=== PATIENT | female | born 1965 | race Caucasian/White ===

== ENCOUNTER → 2017-01-01 | Outpatient (CLI) | payer MEDICARE, MEDICAID, OTHER ==
[~2017-01-01] MED LIST: ALDACTONE 25MG25 M1 PO; ASPIRIN 32325 MG/TAB PO; ATORVASTATIN CA40 MG PO; CEPHALEXIN500 M2 PO; CORDARONE200 MG/TAB PO; COREG 3.123.125 MG/T PO; COREG3.125 MG PO; DEXAMETHASONE4 MG PO; DIGITEK0.125 MG PO; FLEXERIL10 MG PO; KLONOPIN 1MG1 M1 PO; LANOXIN0.125 MG PO; LASIX40 MG PO; LASIX80 M1 PO; LIPITOR 40MG TA40 MG PO; LISINOPRIL2.5 MG PO; LISINOPRIL5 MG PO; LOPRESSOR 225 MG/TAB PO; MAG-OX 400400 MG/TAB PO; METOLAZONE2.5 MG PO; NITROGLYCERIN0.4 MG SL; NORCO 10-325 T1 EACH PO; NORCO 325 MG-101 TAB PO; OXYCODONE PO; POTASSIUM CH2 MEQ/ML PO; POTASSIUM CHLO20 ME3 PO; POTASSIUM CHLO20 MEQ PO; SIMVASTATIN40 M1 PO; SPIRONOLACTONE; TOPROL XL 25MG25 MG PO; TORSEMIDE100 MG PO; TYLENOL 500MG500 MG PO; VIBRAMYCIN100 MG PO; ZANTAC 15OMG150 MG PO; ZAROXOLYN2.5 MG PO
== END ==
LOC: RAD 16:04
DX: R05 Cough (principal)

== ENCOUNTER → 2017-01-11 | Outpatient (CLI) | payer MEDICARE, MEDICAID ==
[2016-01-06 21:03] VITALS: BP 124/73
== END ==
LOC: LAB 14:11 → RAD 14:11
DX: I42.0 Dilated cardiomyopathy (principal); I49.01 Ventricular fibrillation; I05.9 Rheumatic mitral valve disease, unspecified

== ENCOUNTER → 2017-01-21 | Outpatient (CLI) | payer MEDICARE, MEDICAID ==
[2016-01-06 21:03] VITALS: BP 124/73
== END ==
LOC: LAB 11:15
DX: I42.0 Dilated cardiomyopathy (principal); I49.01 Ventricular fibrillation; I05.9 Rheumatic mitral valve disease, unspecified; R73.02 Impaired glucose tolerance (oral)

== ENCOUNTER 2017-12-28 19:40 | Emergency (ER) | payer MEDICARE, MEDICAID ==
[~2017-12-28 19:40] MED LIST changes: -KLONOPIN 1MG1 M1 PO; +KLONOPIN 1MG1 MG PO
[2017-12-28 20:26] LABS: ALBUMIN 4.1 g/dL (3.5-5.0); BUN/CREATININE RATIO 13.9 (6.0-26.0); CALCIUM 9.1 mg/dL (8.4-10.2); TOTAL BILIRUBIN 0.4 mg/dL (0.2-1.3); TOTAL PROTEIN 7.8 g/dL (6.3-8.2)
[2017-12-28 20:29] LABS: PROTHROMBIN TIME 9.1 SECONDS (9.0-12.0)
[2017-12-28 20:31] LABS: HEMATOCRIT 40.6 % (37.0-47.0); HEMOGLOBIN 13.9 g/dL (12.5-16.0); MEAN CELL VOLUME 85 fl (78-100); MEAN CORPUSCULAR HEMOGLOBIN 29 pg (27-31); MEAN CORPUSCULAR HGB CONC 34 g/dL (33-37); MEAN PLATELET VOLUME 9.5 fl (7.4-10.4); PLATELET COUNT 388 K/mm3 (130-400); RED BLOOD COUNT 4.77 M/mm3 (4.10-5.30); WHITE BLOOD COUNT 18.4 K/mm3 (4.8-10.8)
[2017-12-28 20:33] LABS: POTASSIUM 2.3 mmol/L (3.6-5.0)
[2017-12-28 20:34] LABS: TROPONIN-I < 0.03 ng/mL (0.00-0.06)
[2017-12-28 20:37] LABS: CKMB ISOENZYME 1.6 ng/mL (0.6-3.5)
[2017-12-28 20:45] LABS: LYMPHOCYTE 34 % (20-51); MONOCYTE 10 % (3-10); NEUTROPHILS 52 % (42-75)
[2017-12-28] MEDS ORDERED: ZOFRAN4 M2 PO (23:11)
[2017-12-28] MEDS ORDERED: NORCO 325 MG-7.1 TA1 PO (23:11)
[2017-12-28] MEDS ORDERED: KLONOPIN 1MG1 MG PO (23:13)
[2017-12-28] MEDS ORDERED: TAPAZOLE5 MG PO (23:15)
[2017-12-28] MEDS ORDERED: TOPROL XL 25MG25 MG PO (23:16)
[2017-12-28] MEDS ORDERED: POTASSIUM CHLO10 ME7 PO (23:18)
[2017-12-29 01:07] VITALS: BP 96/67
== END 2017-12-28 21:04 | disposition short-term general hospital (02) ==
LOC: ED 19:40
PROVIDERS: Nurse Practitioner Primary Care
DX: I47.2 Ventricular tachycardia (principal); I49.8 Other specified cardiac arrhythmias; T82.199A Other mechanical complication of unspecified cardiac device, initial encounter; Z45.02 Encounter for adjustment and management of automatic implantable cardiac defibrillator; E89.0 Postprocedural hypothyroidism; I11.0 Hypertensive heart disease with heart failure; I50.9 Heart failure, unspecified; I25.10 Atherosclerotic heart disease of native coronary artery without angina pectoris; Z95.1 Presence of aortocoronary bypass graft; E78.5 Hyperlipidemia, unspecified; Z79.82 Long term (current) use of aspirin; Z88.8 Allergy status to other drugs, medicaments and biological substances; F17.210 Nicotine dependence, cigarettes, uncomplicated; K72.90 Hepatic failure, unspecified without coma
CPT/HCPCS: J0282; J2270; J3010; J3475; J3480; J7030; J7060

== ENCOUNTER → 2019-03-09 | Outpatient (CLI) | payer MEDICARE ==
[2017-12-29 01:07] VITALS: BP 96/67
[~2019-03-09] MED LIST changes: +LEVOTHYROXINE0.05 MG PO; +METOPROLOL SUCC50 M1 PO; +NORCO 325 MG-7.1 TA1 PO; +POTASSIUM CHLO10 ME7 PO; +TAPAZOLE5 MG PO; +ZOFRAN4 M2 PO
[2019-03-09 15:31] LABS: BASO # 0.1 (0.02-0.10); EOS # 0.6 (0.04-0.40); EOS % 4.9 % (1.0-5.0); HEMATOCRIT 44.7 % (37.0-47.0); HEMOGLOBIN 14.1 g/dL (12.5-16.0); LYMPH# 2.9 (1.50-4.00); MEAN CELL VOLUME 99 fl (78-100); MEAN CORPUSCULAR HEMOGLOBIN 31 pg (27-31); MEAN CORPUSCULAR HGB CONC 32 g/dL (33-37); MEAN PLATELET VOLUME 9.7 fl (7.4-10.4); MONO # 0.8 (0.20-0.80); NEU # 7.8 (1.40-6.50); PLATELET COUNT 264 K/mm3 (130-400); RED CELL DISTRIBUTION WIDTH 13.9 % (11.5-14.5); WHITE BLOOD COUNT 12.1 K/mm3 (4.8-10.8)
[2019-03-09 16:58] LABS: ERYTHROCYTE SEDIMENTATION RATE 7 mm/hr (0-30)
[2019-03-09 17:05] LABS: ALBUMIN 4.2 g/dL (3.5-5.0); CALCIUM 9.5 mg/dL (8.3-10.5); POTASSIUM 4.4 mmol/L (3.5-5.1); TOTAL BILIRUBIN 0.7 mg/dL (0.2-1.2); TOTAL PROTEIN 7.2 g/dL (6.4-8.3)
[2019-03-09 17:19] LABS: URINE APPEARANCE HAZY; URINE BILIRUBIN NEGATIVE (NEGATIVE); URINE COLOR YELLOW; URINE GLUCOSE NEGATIVE (NEGATIVE); URINE KETONE NEGATIVE (NEGATIVE); URINE NITRATE POSITIVE (NEGATIVE); URINE PROTEIN(semi-quant) TRACE mg/dL (NEGATIVE); URINE UROBILINOGEN NORMAL (NORMAL)
[2019-03-09 17:20] LABS: URINE BLOOD NEGATIVE (NEGATIVE); URINE LEUKOCYTE ESTERASE TRACE (NEGATIVE)
== END ==
LOC: LAB 15:03
PROVIDERS: Internal Medicine
DX: Z00.00 Encounter for general adult medical examination without abnormal findings (principal); I42.9 Cardiomyopathy, unspecified; K90.9 Intestinal malabsorption, unspecified; R73.02 Impaired glucose tolerance (oral)

== ENCOUNTER → 2019-03-13 | Outpatient (CLI) | payer MEDICARE ==
[2017-12-29 01:07] VITALS: BP 96/67
== END ==
LOC: MAMMO 10:45
DX: Z12.31 Encounter for screening mammogram for malignant neoplasm of breast (principal)

== ENCOUNTER 2019-03-15 20:54 | Emergency (ER) | payer MEDICARE ==
[~2019-03-15 20:54] MED LIST changes: -LEVOTHYROXINE0.05 MG PO; -METOPROLOL SUCC50 M1 PO
[2019-03-15] MEDS ORDERED: METOPROLOL SUCC50 M1 PO (21:09)
[2019-03-15] MEDS ORDERED: LEVOTHYROXINE0.05 MG PO (21:12)
[2019-03-15 22:15] VITALS: BP 132/86
== END 2019-03-15 22:18 | disposition home or self-care (01) ==
LOC: ED 20:54
DX: S80.02XA Contusion of left knee, initial encounter (principal); S90.02XA Contusion of left ankle, initial encounter; M79.652 Pain in left thigh; I11.0 Hypertensive heart disease with heart failure; I50.9 Heart failure, unspecified; E78.00 Pure hypercholesterolemia, unspecified; I25.10 Atherosclerotic heart disease of native coronary artery without angina pectoris; F17.210 Nicotine dependence, cigarettes, uncomplicated; K72.90 Hepatic failure, unspecified without coma; Z88.8 Allergy status to other drugs, medicaments and biological substances; Z79.82 Long term (current) use of aspirin; W10.2XXA Fall (on)(from) incline, initial encounter; Y92.813 Airplane as the place of occurrence of the external cause

== ENCOUNTER → 2019-07-27 | Outpatient (CLI) | payer MEDICARE ==
[~2019-07-27] MED LIST changes: +LEVOTHYROXINE0.05 MG PO; +METOPROLOL SUCC50 M1 PO
== END ==
LOC: LAB 16:32
DX: I42.0 Dilated cardiomyopathy (principal); R73.02 Impaired glucose tolerance (oral); E05.90 Thyrotoxicosis, unspecified without thyrotoxic crisis or storm; I47.2 Ventricular tachycardia

== ENCOUNTER → 2019-09-27 | Outpatient (CLI) | payer MEDICARE | LOC: LAB 09:35 | DX: E03.2 Hypothyroidism due to medicaments and other exogenous substances (principal); I42.0 Dilated cardiomyopathy; R73.02 Impaired glucose tolerance (oral) ==

== ENCOUNTER → 2021-12-24 | Outpatient (CLI) | payer MEDICARE ==
[2021-12-24 15:08] LABS: EOS # 0.16 K/mm3 (0.04-0.40); EOS % 1.4 % (1.0-5.0); HEMATOCRIT 41.9 % (37.0-47.0); LYMPH# 2.53 K/mm3 (1.50-4.00); MEAN CELL VOLUME 94 fl (78-100); MEAN CORPUSCULAR HEMOGLOBIN 29 pg (27-31); MEAN CORPUSCULAR HGB CONC 31 g/dL (33-37); MEAN PLATELET VOLUME 9.4 fl (7.4-10.4); MONO # 0.88 K/mm3 (0.20-0.80); NEU # 8.06 K/mm3 (1.40-6.50); PLATELET COUNT 243 K/mm3 (130-400); RED BLOOD COUNT 4.46 M/mm3 (4.10-5.30); RED CELL DISTRIBUTION WIDTH 16.9 % (11.5-14.5); WHITE BLOOD COUNT 11.8 K/mm3 (4.8-10.8)
[2021-12-24 15:35] LABS: ALBUMIN 3.9 g/dL (3.5-5.0); POTASSIUM 3.2 mmol/L (3.5-5.1)
[2021-12-24 15:40] LABS: TOTAL BILIRUBIN 1.6 mg/dL (0.2-1.2)
[2021-12-24 15:44] LABS: MAGNESIUM 1.59 mg/dL (1.60-2.60)
[2021-12-24 15:59] LABS: PARTIAL THROMBOPLASTIN TIME 26.1 SECONDS (21.0-32.0); PROTHROMBIN TIME 11.4 SECONDS (9.0-12.0)
== END ==
LOC: LAB 14:51
PROVIDERS: Internal Medicine
DX: I42.0 Dilated cardiomyopathy (principal); F41.8 Other specified anxiety disorders; R23.3 Spontaneous ecchymoses

== ENCOUNTER → 2022-01-27 | Outpatient (CLI) | payer MEDICARE ==
[2022-01-27 12:45] LABS: BASO # 0.05 K/mm3 (0.02-0.10); EOS # 0.14 K/mm3 (0.04-0.40); EOS % 2.4 % (1.0-5.0); HEMATOCRIT 39.2 % (37.0-47.0); HEMOGLOBIN 11.8 g/dL (12.5-16.0); MEAN CELL VOLUME 90 fl (78-100); MEAN CORPUSCULAR HEMOGLOBIN 27 pg (27-31); MEAN CORPUSCULAR HGB CONC 30 g/dL (33-37); MEAN PLATELET VOLUME 9.4 fl (7.4-10.4); MONO # 0.66 K/mm3 (0.20-0.80); PLATELET COUNT 178 K/mm3 (130-400); RED BLOOD COUNT 4.35 M/mm3 (4.10-5.30); RED CELL DISTRIBUTION WIDTH 16.9 % (11.5-14.5); WHITE BLOOD COUNT 5.9 K/mm3 (4.8-10.8)
[2022-01-27 12:54] LABS: ALBUMIN 3.8 g/dL (3.5-5.0); POTASSIUM 3.4 mmol/L (3.5-5.1)
[2022-01-27 12:55] LABS: CALCIUM 9.5 mg/dL (8.3-10.5)
[2022-01-27 12:57] LABS: TOTAL PROTEIN 6.9 g/dL (6.4-8.3)
[2022-01-27 12:58] LABS: TOTAL BILIRUBIN 1.6 mg/dL (0.2-1.2)
[2022-01-27 13:00] LABS: PARTIAL THROMBOPLASTIN TIME 27.7 SECONDS (21.0-32.0); PROTHROMBIN TIME 12.1 SECONDS (9.0-12.0)
[2022-01-27 13:03] LABS: MAGNESIUM 1.96 mg/dL (1.60-2.60)
== END ==
LOC: LAB 12:27
PROVIDERS: Internal Medicine
DX: I42.0 Dilated cardiomyopathy (principal); F41.8 Other specified anxiety disorders; R23.3 Spontaneous ecchymoses

== ENCOUNTER 2023-10-28 21:59 | Emergency (ER) | payer MEDICARE ==
[~2023-10-28] VITALS: Ht 172.7 cm; Wt 84.5 kg
[2023-10-28 22:48] LABS: HEMATOCRIT 39.7 % (37.0-47.0); HEMOGLOBIN 13.2 g/dL (12.5-16.0); MEAN CELL VOLUME 103 fl (78-100); MEAN CORPUSCULAR HEMOGLOBIN 34 pg (27-31); MEAN CORPUSCULAR HGB CONC 33 g/dL (33-37); MEAN PLATELET VOLUME 10.1 fl (7.4-10.4); PLATELET COUNT 174 K/mm3 (130-400); RED BLOOD COUNT 3.85 M/mm3 (4.10-5.30); RED CELL DISTRIBUTION WIDTH 13.8 % (11.5-14.5)
[2023-10-28 22:53] LABS: CALCIUM 9.1 mg/dL (8.3-10.5)
[2023-10-28 23:17] LABS: BAND 2 % (0-10); LYMPHOCYTE 10 % (20-51); MONOCYTE 7 % (3-10); NEUTROPHILS 80 % (42-75)
[2023-10-29] MEDS ORDERED: MORGIDOX 1X100100 MG PO (00:11)
[2023-10-29] MEDS ORDERED: PREDNISONE20 M1 PO (00:11)
[2023-10-29 00:29] VITALS: BP 144/112
== END 2023-10-29 00:29 | disposition home or self-care (01) ==
LOC: ED 21:59
PROVIDERS: Family Medicine
DX: J44.1 Chronic obstructive pulmonary disease with (acute) exacerbation (principal); F17.210 Nicotine dependence, cigarettes, uncomplicated

== ENCOUNTER 2023-10-31 15:37 | Emergency (ER) | payer MEDICARE ==
[~2023-10-31] VITALS: Ht 172.7 cm; Wt 89.1 kg
[~2023-10-31 15:37] MED LIST changes: +MORGIDOX 1X100100 MG PO; +PREDNISONE20 M1 PO
[2023-10-31] MEDS ORDERED: SYNTHROID137 MCG PO (15:51)
[2023-10-31] MEDS ORDERED: ADULT LOW DOSE81 MG PO (15:51)
[2023-10-31 16:41] LABS: BASO # 0.03 K/mm3 (0.02-0.10); EOS # 0.01 K/mm3 (0.04-0.40); EOS % 0.1 % (1.0-5.0); HEMATOCRIT 45.8 % (37.0-47.0); HEMOGLOBIN 15.4 g/dL (12.5-16.0); LYMPH# 1.19 K/mm3 (1.50-4.00); MEAN CELL VOLUME 101 fl (78-100); MEAN CORPUSCULAR HEMOGLOBIN 34 pg (27-31); MEAN CORPUSCULAR HGB CONC 34 g/dL (33-37); MEAN PLATELET VOLUME 9.7 fl (7.4-10.4); MONO # 0.84 K/mm3 (0.20-0.80); NEU # 6.79 K/mm3 (1.40-6.50); PLATELET COUNT 194 K/mm3 (130-400); RED BLOOD COUNT 4.53 M/mm3 (4.10-5.30); RED CELL DISTRIBUTION WIDTH 14.2 % (11.5-14.5); WHITE BLOOD COUNT 8.9 K/mm3 (4.8-10.8)
[2023-10-31 16:49] LABS: ALBUMIN 4.3 g/dL (3.5-5.0)
[2023-10-31 16:51] LABS: CALCIUM 8.7 mg/dL (8.3-10.5)
[2023-10-31 16:52] LABS: TOTAL PROTEIN 7.9 g/dL (6.4-8.3)
[2023-10-31 16:54] LABS: TOTAL BILIRUBIN 1.52 mg/dL (0.2-1.2)
[2023-10-31 17:30] VITALS: BP 102/68
[2023-10-31] MEDS ORDERED: ROXICODONE 55 MG/TAB PO (17:54)
[2023-10-31] MEDS ORDERED: KLONOPIN 1MG1 MG PO ×2 (17:54→17:55)
[2023-10-31] MEDS ORDERED: METOPROLOL SUCC25 M1 PO (17:56)
== END 2023-10-31 18:20 | disposition other institution (70) ==
LOC: ED 15:37
PROVIDERS: Nurse Practitioner Family
DX: J44.1 Chronic obstructive pulmonary disease with (acute) exacerbation (principal); F17.200 Nicotine dependence, unspecified, uncomplicated
CPT/HCPCS: J7030; J7512

== ENCOUNTER 2023-10-31 17:45 | Observation (INO) | payer MEDICARE ==
[~2023-10-31] VITALS: Ht 172.7 cm; Wt 78.6 kg
[~2023-10-31 17:45] MED LIST changes: +ADULT LOW DOSE81 MG PO; +SYNTHROID137 MCG PO
[2023-10-31] MEDS ORDERED: KLONOPIN 1MG1 MG PO (17:54)
[2023-10-31] MEDS ORDERED: ROXICODONE 55 MG/TAB PO (17:54)
[2023-10-31] MEDS ORDERED: METOPROLOL SUCC25 M1 PO (17:56)
--- NOTE | 2023-10-31 18:24 | NUR ---
PATIENT WAS ADMITTED TO THE ER THIS DAY. 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 IT WAS REPORTED THAT SYMPTOMS BEGAN LAST WEEK. SHE DENIES SMOKING WITHIN THE PAST 5 DAYS. SHE HAS 2 DRINKS\DAY. SHE WAS GIVEN PREDNISONE AND DOXYCYCLINE IN THE ER.
[2023-10-31] MEDS ORDERED: Doxycycline Monohydrate 100 MG CAPSULE PO SCH (19:00)
[2023-10-31] MEDS ORDERED: Polyethylene Glycol 3350 Powder 17 GM PACKET PO PRN (19:00)
[2023-10-31] MEDS ORDERED: Albuterol/Ipratropium 3 MG-0.5 MG/3 ML Neb Soln IH PRN (19:00)
[2023-10-31] MEDS ORDERED: Acetaminophen 325 MG TAB PO PRN (19:00)
--- NOTE | 2023-10-31 20:00 | NUR ---
PT IS IN BED A&O X4. PT HAS A STEADY GAIT. TACHYPNIC AND WHEEZING. PT HAS A PRODUCTIVE COUGH. PT COMPLAINS OF RIGHT SIDED PLEURITIC PAIN. BED IN LOW POSITION CALL LIGHT IN REACH WATER REFILLED AND TISSUES PROVIDED
[2023-10-31 20:35] VITALS: BP 117/77
[2023-10-31 21:38] VITALS: BP 113/75
[2023-11-01 02:39] VITALS: BP 112/74
[2023-11-01 03:37] LABS: URINE APPEARANCE CLEAR (CLEAR); URINE COLOR YELLOW (YELLOW)
[2023-11-01 03:38] LABS: PH-URINE 5.5 (5.0 - 8.0); URINE BILIRUBIN NEGATIVE (NEGATIVE); URINE BLOOD 1+ (NEGATIVE); URINE GLUCOSE NEGATIVE (NEGATIVE); URINE KETONE NEGATIVE (NEGATIVE); URINE LEUKOCYTE ESTERASE NEGATIVE (NEGATIVE); URINE NITRATE NEGATIVE (NEGATIVE); URINE PROTEIN(semi-quant) NEGATIVE (NEGATIVE); URINE WBC 0-1 /hpf (0-3)
[2023-11-01 05:57] VITALS: BP 129/73
[2023-11-01 06:19] LABS: BASO # 0.01 K/mm3 (0.02-0.10); HEMATOCRIT 41.2 % (37.0-47.0); HEMOGLOBIN 13.6 g/dL (12.5-16.0); MEAN CELL VOLUME 104 fl (78-100); MEAN CORPUSCULAR HEMOGLOBIN 34 pg (27-31); MEAN CORPUSCULAR HGB CONC 33 g/dL (33-37); MEAN PLATELET VOLUME 9.7 fl (7.4-10.4); MONO # 0.33 K/mm3 (0.20-0.80); NEU # 4.14 K/mm3 (1.40-6.50); PLATELET COUNT 177 K/mm3 (130-400); RED BLOOD COUNT 3.96 M/mm3 (4.10-5.30); RED CELL DISTRIBUTION WIDTH 14.2 % (11.5-14.5); WHITE BLOOD COUNT 5.1 K/mm3 (4.8-10.8)
[2023-11-01 06:31] LABS: ALBUMIN 3.8 g/dL (3.5-5.0)
[2023-11-01 06:32] LABS: CALCIUM 8.3 mg/dL (8.3-10.5)
[2023-11-01 06:35] LABS: TOTAL BILIRUBIN 0.88 mg/dL (0.2-1.2)
--- NOTE | 2023-11-01 08:00 | NUR ---
PROVIDER NOTIFIED OF DVT RISK. LOVENOX ORDERED
[2023-11-01] MEDS ORDERED: predniSONE 10 MG,predniSONE 50 MG PO SCH (09:00)
[2023-11-01 09:30] VITALS: BP 101/73
[2023-11-01] MEDS ORDERED: clonazePAM 0.5 MG TABLET PO PRN (11:30)
[2023-11-01 14:20] VITALS: BP 116/80
--- NOTE | 2023-11-01 18:15 | NUR ---
PATIENT IS A&O X4. UP WITH SBA TO AND FROM TOILET. REPORTS PAIN TO RIGHT BACK/SIDE AREA WHEN SHE COUGHS, REPORTS RELIEF WITH APAP. USES IS Q HR WHILE AWAKE. DENIES NEEDS AT THIS TIME. CALL LIGHT IN REACH
[2023-11-01 18:38] VITALS: BP 107/66
[2023-11-01] MEDS ORDERED: Torsemide 20 MG TAB PO PRN (21:30)
[2023-11-01 22:25] VITALS: BP 122/82
[2023-11-02] VITALS (7 sets, daily range): BP systolic 86–120; BP diastolic 49–74
[2023-11-02 06:18] LABS: BASO # 0.01 K/mm3 (0.02-0.10); HEMOGLOBIN 14.6 g/dL (12.5-16.0); LYMPH# 1.46 K/mm3 (1.50-4.00); MEAN CELL VOLUME 104 fl (78-100); MEAN CORPUSCULAR HEMOGLOBIN 35 pg (27-31); MEAN CORPUSCULAR HGB CONC 33 g/dL (33-37); MEAN PLATELET VOLUME 10.1 fl (7.4-10.4); MONO # 0.74 K/mm3 (0.20-0.80); NEU # 7.78 K/mm3 (1.40-6.50); PLATELET COUNT 224 K/mm3 (130-400); RED BLOOD COUNT 4.23 M/mm3 (4.10-5.30)
[2023-11-02 06:25] LABS: ALBUMIN 4.1 g/dL (3.5-5.0)
[2023-11-02 06:26] LABS: CALCIUM 8.6 mg/dL (8.3-10.5)
[2023-11-02 06:27] LABS: TOTAL PROTEIN 7.5 g/dL (6.4-8.3)
[2023-11-02 06:29] LABS: TOTAL BILIRUBIN 0.76 mg/dL (0.2-1.2)
[2023-11-02] MEDS ORDERED: Levothyroxine 0.112 MG,Levothyroxine 0.025 MG PO SCH (07:00)
--- NOTE | 2023-11-02 07:00 | NUR ---
Report received from MARTY Camp.
--- NOTE | 2023-11-02 07:50 | NUR ---
Assessment charted. PT in chair at side of bed, requesting pain medications early, provided early per TONYA Ding. Pain is 9-10/10 in the chest area from coughing. PRN tylenol given.
[2023-11-02] MEDS ORDERED: clonazePAM 0.5 MG TABLET PO SCH ×2 (09:00→21:00)
[2023-11-02] MEDS ORDERED: Spironolactone 25 MG TAB PO SCH (09:00)
[2023-11-02] MEDS ORDERED: oxyCODONE 5 MG TAB PO SCH (09:00)
[2023-11-02] MEDS ORDERED: Magnesium Oxide 400 MG TAB PO SCH (09:00)
[2023-11-02] MEDS ORDERED: Amiodarone 200 MG TAB PO SCH (09:00)
--- NOTE | 2023-11-02 18:28 | NUR ---
Pt rested well this afternoon, doing "much better" pain is now a 2/10. Denies needs, denies PRN breathing treatment. Will give bedside report to nightshift nurse who will resume care.
--- NOTE | 2023-11-02 20:10 | NUR ---
PT IN BED AWAKE A/O X4 ABLE TO MAKE NEEDS KNOW. PT IS IN A 2L FR DO TO PULMUNARY EDEMA. PT STATES FEELING BETTER AFTER DOSES OF TORSEMIDE GIVEN DURING DAY, PT HAS BEEN DOING BREATHING EXCERSICES WITH IS. PT ABLE TO SWALLOW PILLS W/O DIFICULTY, PT DENIES FURTHER NEEDS AT THIS TIME, PT LEFT IN BED AT LOWEST POSITION, ALARMED WITH CALL LIGHT WITHIN REACH.
[2023-11-03 02:08] VITALS: BP 112/72
[2023-11-03 05:36] VITALS: BP 113/75; BP 160/86
[2023-11-03] MEDS ORDERED: predniSONE 20 MG TAB PO SCH (09:00)
[2023-11-03 09:05] VITALS: BP 89/61
[2023-11-03 09:39] LABS: HEMATOCRIT 40.2 % (37.0-47.0); HEMOGLOBIN 13.1 g/dL (12.5-16.0); LYMPH# 1.03 K/mm3 (1.50-4.00); MEAN CELL VOLUME 104 fl (78-100); MEAN CORPUSCULAR HEMOGLOBIN 34 pg (27-31); MEAN CORPUSCULAR HGB CONC 33 g/dL (33-37); MEAN PLATELET VOLUME 9.8 fl (7.4-10.4); MONO # 0.36 K/mm3 (0.20-0.80); PLATELET COUNT 179 K/mm3 (130-400); RED BLOOD COUNT 3.87 M/mm3 (4.10-5.30); RED CELL DISTRIBUTION WIDTH 14.2 % (11.5-14.5); WHITE BLOOD COUNT 5.5 K/mm3 (4.8-10.8)
[2023-11-03 09:46] LABS: ALBUMIN 3.6 g/dL (3.5-5.0)
[2023-11-03 09:48] LABS: CALCIUM 8.5 mg/dL (8.3-10.5)
[2023-11-03 09:49] LABS: TOTAL PROTEIN 6.7 g/dL (6.4-8.3)
[2023-11-03 09:51] LABS: TOTAL BILIRUBIN 0.57 mg/dL (0.2-1.2)
--- NOTE | 2023-11-03 12:31 | NUR ---
PT VOICED CONCERNS ABOUT DISCHARGE EARLIER THIS MORNING DURING MEDICATION ADMINISTRATION/ASSESSMENT. PT STATES SHE WANTS TO GO HOME AND CONTINUE OUTPT Tx. PROVIDER WAS NOTIFIED OF PT DESIRES AND OF PT'S VS THIS MORNING, NEW LABS WERE ORDERED C CXR. LOLLY COOK ASSESSED PT AND CONSULTED WITH DR DOSS REGARDING PT STAY. LOLLY COOK AT BEDSIDE AT THIS TIME DISCUSSING Tx PLAN, PT AGREES TO STAY IN HOSPITAL FOR CONTINUED Tx.
[2023-11-03] MEDS ORDERED: Albuterol/Ipratropium 3 MG-0.5 MG/3 ML Neb Soln IH PRN (13:00)
[2023-11-03 13:54] VITALS: BP 92/57
--- NOTE | 2023-11-03 15:00 | NUR ---
PT STATUS CHANGED TO ACUTE
== END 2023-11-03 15:28 | disposition other institution (70) ==
LOC: MED/SURG 17:45
PROVIDERS: Nurse Practitioner Family; ADMIT Family Medicine
DX: J44.1 Chronic obstructive pulmonary disease with (acute) exacerbation (principal); I11.0 Hypertensive heart disease with heart failure; I50.9 Heart failure, unspecified; F17.210 Nicotine dependence, cigarettes, uncomplicated; Z95.810 Presence of automatic (implantable) cardiac defibrillator; Z95.1 Presence of aortocoronary bypass graft; Z91.141 Patient's other noncompliance with medication regimen due to financial hardship; Z79.899 Other long term (current) drug therapy
CPT/HCPCS: G0378; J1650; J7512

== ENCOUNTER → 2023-12-16 | Outpatient (CLI) | payer MEDICARE ==
[~2023-12-16] MED LIST changes: +CALCIUM 600 MG-1 TAB PO; +METOPROLOL SUCC25 M1 PO; +ROXICODONE 55 MG/TAB PO
[2023-12-16 14:20] LABS: ALBUMIN 3.8 g/dL (3.5-5.0)
[2023-12-16 14:22] LABS: CALCIUM 9.1 mg/dL (8.3-10.5)
[2023-12-16 14:23] LABS: TOTAL PROTEIN 7.1 g/dL (6.4-8.3)
[2023-12-16 14:25] LABS: TOTAL BILIRUBIN 0.9 mg/dL (0.2-1.2)
[2023-12-16 14:29] LABS: MAGNESIUM 1.95 mg/dL (1.60-2.60)
== END ==
LOC: LAB 14:02
PROVIDERS: Internal Medicine
DX: I42.0 Dilated cardiomyopathy (principal); E03.9 Hypothyroidism, unspecified

== ENCOUNTER 2024-02-29 10:39 | Emergency (ER) | payer MEDICARE ==
[2024-02-29] MEDS ORDERED: Furosemide 40 MG/4 ML VIAL IV ONE (10:56)
[2024-02-29] MEDS ORDERED: methylPREDNISolone Sod Succ 125 MG/2 ML VIAL IM ONE (10:56)
[2024-02-29] MEDS ORDERED: Albuterol/Ipratropium 3 MG-0.5 MG/3 ML Neb Soln IH ONE (10:56)
[2024-04-19 11:56] LABS: ALCOHOL IN-HOUSE < 10 mg/dL (<10); ALT/SGPT 44 U/L (0-55); AST-SGOT 77 U/L (5-34); CALCIUM 9.4 mg/dL (8.3-10.5); CARBON DIOXIDE 19 mmol/L (22-29); GLUCOSE 102 mg/dL (65-105); SODIUM 137 mmol/L (136-145); TOTAL BILIRUBIN 1.8 mg/dL (0.2-1.2); TROPONIN-I < 0.030 ng/mL (0.00-0.033)
[2024-04-19 12:14] LABS: D-DIMER 1.14 mg/L FEU (0.15-0.50)
[2024-04-19 12:16] LABS: BASO # 0.04 K/mm3 (0.02-0.10); EOS # 0.05 K/mm3 (0.04-0.40); EOS % 0.7 % (1.0-5.0); HEMATOCRIT 39.6 % (37.0-47.0); HEMOGLOBIN 12.2 g/dL (12.5-16.0); LYMPH# 1.77 K/mm3 (1.50-4.00); MEAN CELL VOLUME 95 fl (78-100); MEAN CORPUSCULAR HEMOGLOBIN 29 pg (27-31); MEAN CORPUSCULAR HGB CONC 31 g/dL (33-37); MEAN PLATELET VOLUME 9.9 fl (7.4-10.4); MONO # 0.61 K/mm3 (0.20-0.80); NEU # 4.76 K/mm3 (1.40-6.50); PLATELET COUNT 209 K/mm3 (130-400); RED BLOOD COUNT 4.18 M/mm3 (4.10-5.30); RED CELL DISTRIBUTION WIDTH 18.4 % (11.5-14.5); WHITE BLOOD COUNT 7.2 K/mm3 (4.8-10.8)
== END 2024-02-29 13:33 | disposition other institution (70) ==
LOC: ED 10:39
PROVIDERS: Family Medicine
DX: I50.9 Heart failure, unspecified (principal)
CPT/HCPCS: J1940; J2919

== ENCOUNTER → 2024-04-09 | Outpatient (CLI) | payer MEDICARE ==
[2024-04-09 14:43] LABS: ALBUMIN 3.7 g/dL (3.5-5.0)
[2024-04-09 14:44] LABS: CALCIUM 9.1 mg/dL (8.3-10.5)
[2024-04-09 14:46] LABS: TOTAL PROTEIN 5.7 g/dL (6.4-8.3)
[2024-04-09 14:47] LABS: TOTAL BILIRUBIN 0.7 mg/dL (0.2-1.2)
[2024-04-09 14:52] LABS: MAGNESIUM 1.72 mg/dL (1.60-2.60)
[2024-04-09 14:53] LABS: BASO # 0.03 K/mm3 (0.02-0.10); EOS # 0.08 K/mm3 (0.04-0.40); EOS % 0.7 % (1.0-5.0); HEMATOCRIT 28.3 % (37.0-47.0); HEMOGLOBIN 8.3 g/dL (12.5-16.0); LYMPH# 1.84 K/mm3 (1.50-4.00); MEAN CELL VOLUME 104 fl (78-100); MEAN CORPUSCULAR HEMOGLOBIN 31 pg (27-31); MEAN CORPUSCULAR HGB CONC 29 g/dL (33-37); MEAN PLATELET VOLUME 9.4 fl (7.4-10.4); PLATELET COUNT 231 K/mm3 (130-400); RED BLOOD COUNT 2.72 M/mm3 (4.10-5.30); RED CELL DISTRIBUTION WIDTH 20.9 % (11.5-14.5); WHITE BLOOD COUNT 11.6 K/mm3 (4.8-10.8)
== END ==
LOC: LAB 14:22
PROVIDERS: Internal Medicine
DX: I42.0 Dilated cardiomyopathy (principal); D64.9 Anemia, unspecified

== ENCOUNTER → 2024-04-23 | Outpatient (CLI) | payer MEDICARE ==
[2024-04-23 14:20] LABS: CALCIUM 9.2 mg/dL (8.3-10.5)
== END ==
LOC: LAB 13:57
DX: I50.22 Chronic systolic (congestive) heart failure (principal)

== ENCOUNTER 2024-05-07 12:59 | Outpatient (RCR) | payer MEDICARE ==
[2024-05-29] MEDS ORDERED: ZOLOFT 50MG50 MG PO (15:38)
[2024-05-29] MEDS ORDERED: ATORVASTATIN CA40 MG PO (15:39)
== END 2024-06-02 | disposition home or self-care (01) ==
LOC: CARDREHAB
DX: I50.9 Heart failure, unspecified (principal)

== ENCOUNTER → 2024-05-25 | Outpatient (REF) | payer MEDICARE ==
[~2024-05-25] MED LIST changes: +ZOLOFT 50MG50 MG PO
[2024-05-25 16:30] LABS: BASO # 0.04 K/mm3 (0.02-0.10); EOS % 1.1 % (1.0-5.0); HEMATOCRIT 27.5 % (37.0-47.0); LYMPH# 1.26 K/mm3 (1.50-4.00); MEAN CELL VOLUME 83 fl (78-100); MEAN CORPUSCULAR HEMOGLOBIN 24 pg (27-31); MEAN CORPUSCULAR HGB CONC 29 g/dL (33-37); MEAN PLATELET VOLUME 9.3 fl (7.4-10.4); NEU # 6.49 K/mm3 (1.40-6.50); PLATELET COUNT 409 K/mm3 (130-400); RED CELL DISTRIBUTION WIDTH 19.6 % (11.5-14.5)
[2024-05-25 16:33] LABS: ALBUMIN 3.9 g/dL (3.5-5.0)
[2024-05-25 16:34] LABS: CALCIUM 9.1 mg/dL (8.3-10.5)
[2024-05-25 16:35] LABS: TOTAL PROTEIN 6.7 g/dL (6.4-8.3)
[2024-05-25 16:37] LABS: TOTAL BILIRUBIN 0.6 mg/dL (0.2-1.2)
[2024-05-25 16:41] LABS: MAGNESIUM 1.73 mg/dL (1.60-2.60)
[2024-05-25 17:32] LABS: HEMOGLOBIN 7.9 g/dL (12.5-16.0)
== END ==
LOC: LAB 16:06
PROVIDERS: Internal Medicine
DX: I42.0 Dilated cardiomyopathy (principal); D64.9 Anemia, unspecified

== ENCOUNTER → 2024-07-05 | Outpatient (CLI) | payer MEDICARE ==
[2024-07-05 16:41] LABS: HEMOGLOBIN 11.7 g/dL (12.5-16.0); MEAN CELL VOLUME 86 fl (78-100); MEAN CORPUSCULAR HEMOGLOBIN 24 pg (27-31); MEAN CORPUSCULAR HGB CONC 29 g/dL (33-37); MEAN PLATELET VOLUME 9.3 fl (7.4-10.4); PLATELET COUNT 253 K/mm3 (130-400); RED BLOOD COUNT 4.79 M/mm3 (4.10-5.30); RED CELL DISTRIBUTION WIDTH 21.6 % (11.5-14.5); WHITE BLOOD COUNT 8.4 K/mm3 (4.8-10.8)
[2024-07-05 16:45] LABS: ALBUMIN 4.2 g/dL (3.5-5.0)
[2024-07-05 16:46] LABS: CALCIUM 9.5 mg/dL (8.3-10.5)
[2024-07-05 16:47] LABS: TOTAL PROTEIN 7.2 g/dL (6.4-8.3)
[2024-07-05 16:49] LABS: TOTAL BILIRUBIN 0.9 mg/dL (0.2-1.2)
[2024-07-05 16:54] LABS: MAGNESIUM 1.64 mg/dL (1.60-2.60)
[2024-07-05 17:08] LABS: LYMPHOCYTE 14 % (20-51); MONOCYTE 6 % (3-10); NEUTROPHILS 78 % (42-75); OVALOCYTES 1+
[2024-07-05 17:09] LABS: HYPOCHROMIA 1+; MICROCYTOSIS 1+; TEAR DROP CELLS 1+
== END ==
LOC: LAB 16:22
PROVIDERS: Internal Medicine
DX: G47.33 Obstructive sleep apnea (adult) (pediatric) (principal); D64.9 Anemia, unspecified; E03.9 Hypothyroidism, unspecified; K90.9 Intestinal malabsorption, unspecified

== ENCOUNTER 2024-07-19 17:01 | Emergency (ER) | payer MEDICARE ==
[~2024-07-19] VITALS: Ht 172.7 cm; Wt 81.8 kg
[2024-07-19] MEDS ORDERED: JARDIANCE10 MG PO (17:11)
[2024-07-19] MEDS ORDERED: PANTOPRAZOLE SO40 MG PO (17:12)
[2024-07-19] MEDS ORDERED: Albuterol/Ipratropium 3 MG-0.5 MG/3 ML Neb Soln IH ONE (17:30)
[2024-07-19 17:39] LABS: BASO # 0.03 K/mm3 (0.02-0.10); EOS # 0.01 K/mm3 (0.04-0.40); EOS % 0.1 % (1.0-5.0); HEMATOCRIT 40.2 % (37.0-47.0); LYMPH# 1.64 K/mm3 (1.50-4.00); MEAN CELL VOLUME 82 fl (78-100); MEAN CORPUSCULAR HEMOGLOBIN 24 pg (27-31); MEAN CORPUSCULAR HGB CONC 30 g/dL (33-37); MEAN PLATELET VOLUME 9.5 fl (7.4-10.4); MONO # 1.34 K/mm3 (0.20-0.80); NEU # 8.19 K/mm3 (1.40-6.50); PLATELET COUNT 289 K/mm3 (130-400); RED BLOOD COUNT 4.91 M/mm3 (4.10-5.30); RED CELL DISTRIBUTION WIDTH 20.9 % (11.5-14.5); WHITE BLOOD COUNT 11.3 K/mm3 (4.8-10.8)
[2024-07-19 17:46] LABS: ALBUMIN 4.1 g/dL (3.5-5.0)
[2024-07-19 17:48] LABS: CALCIUM 9.3 mg/dL (8.3-10.5)
[2024-07-19 17:49] LABS: TOTAL PROTEIN 6.9 g/dL (6.4-8.3)
[2024-07-19 17:51] LABS: TOTAL BILIRUBIN 1.9 mg/dL (0.2-1.2)
[2024-07-19] MEDS ORDERED: Benzonatate 100 MG CAP PO ONE (18:00)
[2024-07-19] MEDS ORDERED: NS 1,000 ML IV SCH (18:15)
[2024-07-19] MEDS ORDERED: Metoprolol Tartrate 1 MG/ML 5 ML VIAL IV SCH (18:30)
[2024-07-19] MEDS ORDERED: Digoxin 0.25 MG/ML 2 ML VIAL IV ONE (19:45)
[2024-07-19 20:07] VITALS: BP 98/57
== END 2024-07-19 20:30 | disposition short-term general hospital (02) ==
LOC: ED 17:01
PROVIDERS: Nurse Practitioner
DX: I48.91 Unspecified atrial fibrillation (principal); J06.9 Acute upper respiratory infection, unspecified; I34.0 Nonrheumatic mitral (valve) insufficiency; R19.7 Diarrhea, unspecified; R79.89 Other specified abnormal findings of blood chemistry; E11.22 Type 2 diabetes mellitus with diabetic chronic kidney disease; I13.0 Hypertensive heart and chronic kidney disease with heart failure and stage 1 through stage 4 chronic kidney disease, or unspecified chronic kidney disease; N18.9 Chronic kidney disease, unspecified; I50.9 Heart failure, unspecified; F17.290 Nicotine dependence, other tobacco product, uncomplicated; F17.210 Nicotine dependence, cigarettes, uncomplicated; Z95.0 Presence of cardiac pacemaker
CPT/HCPCS: J1160; J7030

== ENCOUNTER → 2024-08-21 | Outpatient (CLI) | payer MEDICARE ==
[~2024-08-21] MED LIST changes: +JARDIANCE10 MG PO; +PANTOPRAZOLE SO40 MG PO
[2024-08-21 16:18] LABS: HEMATOCRIT 43.9 % (37.0-47.0); HEMOGLOBIN 13.1 g/dL (12.5-16.0); MEAN PLATELET VOLUME 8.3 fl (7.4-10.4); RED BLOOD COUNT 5.04 M/mm3 (4.10-5.30); RED CELL DISTRIBUTION WIDTH 25.1 % (11.5-14.5)
[2024-08-21 16:23] LABS: ALBUMIN 4.1 g/dL (3.5-5.0)
[2024-08-21 16:25] LABS: CALCIUM 9.8 mg/dL (8.3-10.5)
[2024-08-21 16:26] LABS: TOTAL PROTEIN 7.1 g/dL (6.4-8.3)
[2024-08-21 16:28] LABS: TOTAL BILIRUBIN 0.6 mg/dL (0.2-1.2)
[2024-08-21 16:33] LABS: MAGNESIUM 2.31 mg/dL (1.60-2.60)
[2024-08-21 17:30] LABS: PROTHROMBIN TIME 49.3 SECONDS (9.0-12.0)
== END ==
LOC: LAB 16:06
PROVIDERS: Internal Medicine
DX: I42.0 Dilated cardiomyopathy (principal); E03.9 Hypothyroidism, unspecified; D64.9 Anemia, unspecified; Z95.2 Presence of prosthetic heart valve

== ENCOUNTER → 2024-08-23 | Outpatient (CLI) | payer MEDICARE ==
[2024-08-23 14:36] LABS: PROTHROMBIN TIME 35.5 SECONDS (9.0-12.0)
== END ==
LOC: LAB 13:53
PROVIDERS: Internal Medicine
DX: Z95.2 Presence of prosthetic heart valve (principal)

== ENCOUNTER → 2024-08-28 | Outpatient (CLI) | payer MEDICARE ==
[2024-08-28 10:26] LABS: PROTHROMBIN TIME 36.9 SECONDS (9.0-12.0)
== END ==
LOC: LAB 09:56
PROVIDERS: Internal Medicine
DX: Z95.2 Presence of prosthetic heart valve (principal)

== ENCOUNTER → 2024-09-04 | Outpatient (CLI) | payer MEDICARE ==
[2024-09-04 15:16] LABS: PROTHROMBIN TIME 36.2 SECONDS (9.0-12.0)
== END ==
LOC: LAB 14:46
PROVIDERS: Internal Medicine
DX: Z95.2 Presence of prosthetic heart valve (principal)

== ENCOUNTER → 2024-09-11 | Outpatient (CLI) | payer MEDICARE ==
[2024-09-11 14:36] LABS: PROTHROMBIN TIME 30.4 SECONDS (9.0-12.0)
== END ==
LOC: LAB 14:02
PROVIDERS: Internal Medicine
DX: Z95.2 Presence of prosthetic heart valve (principal)

== ENCOUNTER → 2024-09-20 | Outpatient (CLI) | payer MEDICARE ==
[2024-09-20 15:38] LABS: PROTHROMBIN TIME 25.2 SECONDS (9.0-12.0)
== END ==
LOC: LAB 14:17
PROVIDERS: Internal Medicine
DX: Z95.2 Presence of prosthetic heart valve (principal)

== ENCOUNTER → 2024-10-10 | Outpatient (CLI) | payer MEDICARE ==
[2024-10-10 16:27] LABS: PROTHROMBIN TIME 23.8 SECONDS (9.0-12.0)
== END ==
LOC: LAB 15:51
PROVIDERS: Internal Medicine
DX: E03.9 Hypothyroidism, unspecified (principal); Z95.2 Presence of prosthetic heart valve

== ENCOUNTER → 2024-10-16 | Outpatient (CLI) | payer MEDICARE ==
[2024-10-16 16:26] LABS: BASO # 0.04 K/mm3 (0.02-0.10); EOS # 0.25 K/mm3 (0.04-0.40); EOS % 3.2 % (1.0-5.0); HEMATOCRIT 54.3 % (37.0-47.0); HEMOGLOBIN 17.6 g/dL (12.5-16.0); LYMPH# 1.43 K/mm3 (1.50-4.00); MEAN CELL VOLUME 95 fl (78-100); MEAN CORPUSCULAR HEMOGLOBIN 31 pg (27-31); MEAN CORPUSCULAR HGB CONC 32 g/dL (33-37); MEAN PLATELET VOLUME 9.4 fl (7.4-10.4); MONO # 0.61 K/mm3 (0.20-0.80); NEU # 5.55 K/mm3 (1.40-6.50); PLATELET COUNT 250 K/mm3 (130-400); RED BLOOD COUNT 5.71 M/mm3 (4.10-5.30); RED CELL DISTRIBUTION WIDTH 18.9 % (11.5-14.5); WHITE BLOOD COUNT 7.9 K/mm3 (4.8-10.8)
[2024-10-16 16:31] LABS: ALBUMIN 4.7 g/dL (3.5-5.0)
[2024-10-16 16:33] LABS: CALCIUM 10.6 mg/dL (8.3-10.5)
[2024-10-16 16:36] LABS: TOTAL BILIRUBIN 1.2 mg/dL (0.2-1.2)
[2024-10-16 16:40] LABS: MAGNESIUM 1.89 mg/dL (1.60-2.60)
[2024-10-16 17:21] LABS: PROTHROMBIN TIME 53.5 SECONDS (9.0-12.0)
== END ==
LOC: LAB 16:10
PROVIDERS: Internal Medicine
DX: I42.0 Dilated cardiomyopathy (principal); D64.9 Anemia, unspecified; Z95.2 Presence of prosthetic heart valve

== ENCOUNTER → 2024-10-18 | Outpatient (CLI) | payer MEDICARE ==
[2024-10-18 16:38] LABS: PROTHROMBIN TIME 45.6 SECONDS (9.0-12.0)
== END ==
LOC: LAB 15:19
PROVIDERS: Internal Medicine
DX: Z95.2 Presence of prosthetic heart valve (principal)

== ENCOUNTER → 2024-10-19 | Outpatient (CLI) | payer MEDICARE ==
[2024-10-19 15:12] LABS: PROTHROMBIN TIME 33.9 SECONDS (9.0-12.0)
== END ==
LOC: LAB 14:41
PROVIDERS: Internal Medicine
DX: Z95.2 Presence of prosthetic heart valve (principal)

== ENCOUNTER → 2024-10-22 | Outpatient (CLI) | payer MEDICARE ==
[2024-10-22 16:01] LABS: PROTHROMBIN TIME 30.5 SECONDS (9.0-12.0)
== END ==
LOC: LAB 15:26
PROVIDERS: Internal Medicine
DX: Z95.2 Presence of prosthetic heart valve (principal)

== ENCOUNTER → 2024-10-26 | Outpatient (CLI) | payer MEDICARE ==
[2024-10-26 12:15] LABS: BASO # 0.03 K/mm3 (0.02-0.10); EOS # 0.26 K/mm3 (0.04-0.40); EOS % 2.8 % (1.0-5.0); HEMATOCRIT 51.8 % (37.0-47.0); HEMOGLOBIN 16.9 g/dL (12.5-16.0); LYMPH# 2.07 K/mm3 (1.50-4.00); MEAN CELL VOLUME 97 fl (78-100); MEAN CORPUSCULAR HEMOGLOBIN 32 pg (27-31); MEAN CORPUSCULAR HGB CONC 33 g/dL (33-37); MEAN PLATELET VOLUME 9.5 fl (7.4-10.4); MONO # 0.77 K/mm3 (0.20-0.80); NEU # 6.09 K/mm3 (1.40-6.50); PLATELET COUNT 222 K/mm3 (130-400); RED BLOOD COUNT 5.36 M/mm3 (4.10-5.30); RED CELL DISTRIBUTION WIDTH 17.5 % (11.5-14.5); WHITE BLOOD COUNT 9.3 K/mm3 (4.8-10.8)
[2024-10-26 12:23] LABS: ALBUMIN 4.4 g/dL (3.5-5.0)
[2024-10-26 12:25] LABS: CALCIUM 9.8 mg/dL (8.3-10.5)
[2024-10-26 12:26] LABS: TOTAL PROTEIN 7.8 g/dL (6.4-8.3)
[2024-10-26 12:32] LABS: MAGNESIUM 1.61 mg/dL (1.60-2.60)
== END ==
LOC: LAB 12:01
PROVIDERS: Internal Medicine
DX: I42.0 Dilated cardiomyopathy (principal); Z98.890 Other specified postprocedural states

== ENCOUNTER → 2024-10-30 | Outpatient (CLI) | payer MEDICARE ==
[2024-10-30 14:36] LABS: PROTHROMBIN TIME 25.4 SECONDS (9.0-12.0)
== END ==
LOC: LAB 14:09
PROVIDERS: Internal Medicine
DX: Z98.890 Other specified postprocedural states (principal)

== ENCOUNTER → 2024-11-06 | Outpatient (CLI) | payer MEDICARE ==
[2024-11-06 15:18] LABS: PROTHROMBIN TIME 29.1 SECONDS (9.0-12.0)
[2024-11-06 15:24] LABS: ALBUMIN 4.4 g/dL (3.5-5.0)
[2024-11-06 15:26] LABS: CALCIUM 10.1 mg/dL (8.3-10.5)
[2024-11-06 15:27] LABS: TOTAL PROTEIN 7.8 g/dL (6.4-8.3)
== END ==
LOC: LAB 14:53
PROVIDERS: Internal Medicine
DX: E87.6 Hypokalemia (principal); Z98.890 Other specified postprocedural states

== ENCOUNTER → 2024-11-12 | Outpatient (CLI) | payer MEDICARE ==
[2024-11-12 11:52] LABS: PROTHROMBIN TIME 21.1 SECONDS (9.0-12.0)
== END ==
LOC: LAB 11:25
PROVIDERS: Internal Medicine
DX: J98.11 Atelectasis (principal); Z98.890 Other specified postprocedural states

== ENCOUNTER → 2024-11-22 | Outpatient (CLI) | payer MEDICARE ==
[2024-11-22 14:58] LABS: PROTHROMBIN TIME 33.1 SECONDS (9.0-12.0)
== END ==
LOC: LAB 14:27
PROVIDERS: Internal Medicine
DX: Z98.890 Other specified postprocedural states (principal)

== ENCOUNTER → 2025-01-07 | Outpatient (CLI) | payer MEDICARE ==
[2025-01-07 16:37] LABS: BASO # 0.06 K/mm3 (0.02-0.10); EOS # 0.25 K/mm3 (0.04-0.40); EOS % 2.5 % (1.0-5.0); HEMATOCRIT 49.3 % (37.0-47.0); LYMPH# 1.75 K/mm3 (1.50-4.00); MEAN CELL VOLUME 102 fl (78-100); MEAN CORPUSCULAR HEMOGLOBIN 33 pg (27-31); MEAN CORPUSCULAR HGB CONC 33 g/dL (33-37); MONO # 0.76 K/mm3 (0.20-0.80); NEU # 7.14 K/mm3 (1.40-6.50); PLATELET COUNT 257 K/mm3 (130-400); RED BLOOD COUNT 4.82 M/mm3 (4.10-5.30); RED CELL DISTRIBUTION WIDTH 13.7 % (11.5-14.5)
[2025-01-07 16:45] LABS: ALBUMIN 4.3 g/dL (3.5-5.0)
[2025-01-07 16:46] LABS: CALCIUM 9.1 mg/dL (8.3-10.5)
[2025-01-07 16:47] LABS: TOTAL PROTEIN 7.8 g/dL (6.4-8.3)
[2025-01-07 16:49] LABS: TOTAL BILIRUBIN 1.1 mg/dL (0.2-1.2)
[2025-01-07 16:53] LABS: MAGNESIUM 1.68 mg/dL (1.60-2.60)
== END ==
LOC: LAB 16:12
PROVIDERS: Internal Medicine
DX: I42.0 Dilated cardiomyopathy (principal); K90.9 Intestinal malabsorption, unspecified; E78.2 Mixed hyperlipidemia; E03.9 Hypothyroidism, unspecified

== ENCOUNTER → 2025-01-10 | Outpatient (CLI) | payer MEDICARE | LOC: RAD 15:10 | DX: S89.91XA Unspecified injury of right lower leg, initial encounter (principal); X58.XXXA Exposure to other specified factors, initial encounter ==